=== PATIENT | female | born 1950 | race Caucasian/White ===

== ENCOUNTER → 2017-07-26 | Outpatient (CLI) | payer OTHER ==
[2016-07-06 11:51] VITALS: BP 133/64
== END ==
LOC: LAB 09:43
PROVIDERS: ATTEND Internal Medicine Gastroenterology
DX: K64.0 First degree hemorrhoids (principal)
CPT/HCPCS: 82270

== ENCOUNTER → 2017-08-06 | Outpatient (CLI) | payer OTHER ==
[2016-07-06 11:51] VITALS: BP 133/64
--- NOTE | 2017-08-07 16:53 | MG ---
HISTORY: SCREENING Comparison: Multiple priors dating back to June 01, 2010 FINDINGS: Bilateral CC and MLO projections of the right and left breast were obtained. Scattered fibroglandula r tissue is seen to be present without significant interval change. No suspicious architectural dist ortion, mass or clustered microcalcifications can be observed to suggest malignancy. No skin thicken ing or nipple retraction is appreciated. No pathological lymphadenopathy can be identified. Benign- appearing calcifications are noted within the right and left breast. IMPRESSION: NO RADIOGRAPHIC EVIDENCE OF MALIGNANCY. ACR CATEGORY 2 - benign findings. FOLLOW-UP EXAM 1 YEAR. Diagnostic CAD was utilized and reviewed. * 0 (ZERO) - ASSESSMENT INCOMPLETE; ADDITIONAL IMAGING IS NEEDED. * 1/ (ONE) - NEGATIVE. * 2/II (TWO) - BENIGN FINDINGS. * 3/III (THREE) - PROBABLY BENIGN FINDING; SHORT INTERVAL FOLLOW-UP SUGGESTED. * 4/IV (FOUR) - SUSPICIOUS ABNORMALITY; BIOPSY SHOULD BE CONSIDERED. * 5/V - HIGHLY SUSPICIOUS OF MALIGNANCY; BIOPSY SHOULD BE PERFORMED. A NEGATIVE X-RAY REPORT SHOULD NOT DELAY BIOPSY IF A DOMINANT OR CLINICALLY SUSPICIOUS MASS IS PRESENT; 4 TO 8 PERCENT OF CANCERS ARE NOT IDENTIFIED BY X-RAY. A NEGA TIVE REPORT MAY REINFORCE THE CLINICAL IMPRESSION. ADENOSIS AND DENSE BREASTS MAY OBSCURE AN UNDERLY ING NEOPLASM. Reported By:
== END ==
LOC: RAD 14:26
PROVIDERS: ATTEND Specialist
DX: Z12.31 Encounter for screening mammogram for malignant neoplasm of breast (principal)
CPT/HCPCS: 77067

== ENCOUNTER 2017-10-31 07:11 | Day surgery (SDC) | payer OTHER ==
[2017-10-31] MEDS ORDERED: NS 1000 ML 1,000 ML ONE (07:23)
[2017-10-31] MEDS ORDERED: ANCEF 1 GM IV PREMIX* 1 GM/50 ML BAG IV ONE (07:24)
[2017-10-31 07:47] LABS: BASOPHILS % (AUTO) 0.7 % (0.2-1.0); EOSINOPHILS # (AUTO) 0.2 x10^3/uL (0.0-0.2); EOSINOPHILS % (AUTO) 2.3 % (0.9-2.9); HEMATOCRIT 41.4 % (36.0-47.0); LYMPHOCYTES # (AUTO) 2.5 X10^3/uL (1.3-2.9); LYMPHOCYTES % (AUTO) 37.2 % (21.0-51.0); MEAN CORPUSCULAR HEMOGLOBIN 29.8 pg (27.0-34.0); MEAN CORPUSCULAR HGB CONC 33.8 g/dL (33.0-35.0); MEAN CORPUSCULAR VOLUME 88.2 fL (80.0-100.0); MEAN PLATELET VOLUME 7.2 fL (7.4-11.0); MONOCYTES # (AUTO) 0.7 x10^3/uL (0.3-0.8); MONOCYTES % (AUTO) 9.7 % (0.0-13.0); NEUTROPHILS # (AUTO) 3.4 x10^3/uL (2.2-4.8); NEUTROPHILS % (AUTO) 50.1 % (42.0-75.0); PLATELET COUNT 319 X10^3/uL (150.0-450.0); RED BLOOD COUNT 4.69 X10^6/uL (3.5-5.4); RED CELL DISTRIBUTION WIDTH 13.8 % (11.6-16.5); WHITE BLOOD COUNT 6.7 X10^3/uL (3.6-10.0)
[2017-10-31 07:58] LABS: ALANINE AMINOTRANSFERASE 30 Units/L (12-78); ALKALINE PHOSPHATASE 56 Units/L (46-116); ASPARTATE AMINO TRANSFERASE 23 Units/L (15-37); BLOOD UREA NITROGEN 17 mg/dL (7-18); CALCIUM 9.4 mg/dL (8.5-10.1); CARBON DIOXIDE 27.9 mmol/L (21-32); CHLORIDE 105 mmol/L (98-107); COR NA(FOR HYPERGLY) 141 mmol/L (136-145); CREATININE 0.92 mg/dL (0.55-1.02); SODIUM 141 mmol/L (136-145); eGFR BLACK RACES > 60 (>60); eGFR NON BLACK RACES > 60 (>60)
[2017-10-31] MEDS ORDERED: FENTANYL INJ 250 mcg ONE (08:28)
[2017-10-31] MEDS ORDERED: MARCAINE 0.25% INJ ONE (08:58)
[2017-10-31] MEDS ORDERED: XYLOCAINE 1% and EPINEPHRINE 1:100,000 ONE (08:58)
[2017-10-31] MEDS ORDERED: DECADRON INJ ONE (09:21)
[2017-10-31] MEDS: DILAUDID INJ IVP PRN ×3 (10:07→10:19)
[2017-10-31] MEDS ORDERED: ZOFRAN INJ 4 MG VIAL IVP PRN (10:09)
[2017-10-31] MEDS ORDERED: REGLAN INJ 10 MG VIAL IVP PRN (10:09)
[2017-10-31] MEDS ORDERED: PHENERGAN INJ 25 MG IVP PRN (10:09)
[2017-10-31] MEDS ORDERED: BENADRYL INJ 50 MG VIAL IVP PRN (10:09)
[2017-10-31] MEDS ORDERED: DILAUDID INJ ONE (10:10)
[2017-10-31] MEDS ORDERED: PERCOCET TAB 5/325 MG PO PRN (10:30)
--- NOTE | 2017-10-31 10:35 | OR.GENERIC ---
Post-Op Note Generic - Post-Op Note Operative Report: Operative Report Date of Operation: October 31, 2017 Pre-Operative Diagnosis: Biliary dyskinesia. Post-Operative Diagnosis: Biliary dyskinesia. Procedure: Laparoscopic cholecystectomy. Surgeon: Sumanth Hughes MD. Industrial Truck Operator: Timothy Oneal CRNA. Specimen: Gallbladder. Estimated blood loss: Minimal. Complications: None. Summary: The patient is a 66 year old female who presented with biliary dyskinesia. The patient was offered cholecystectomy. The risk and benefits of the procedure including difficulty with anesthesia, bleeding, infection, conversion to open procedure, bile leak, hernia formation, DVT, as well as PE were discussed with the patient. The patient understood these risks and requested the procedure. On October 31, 2017, the patient was brought to the operative theatre. A time out was performed verifying the patient and procedure. The patient received Ancef for pre-operative antibiosis. After satisfactory induction of general endotracheal anesthesia, the abdomen was prepped with Chloraprep and draped in the usual sterile fashion. The skin and subcutaneous tissue inferior to the umbilicus was anesthetized using local anesthetic. The skin was incised sharply. A 12 mm trocar was placed though the incision and into the peritoneal cavity using the Annette technique. Carbon dioxide was infiltrated through this trocar to obtain a pneumoperitoneum of 15 mm Hg. A camera was placed through this trocar and swept in all directions. No injury was seen from entering the peritoneal cavity. A site was selected in the subxiphoid location for our 2nd trocar. The skin and fascia was anesthetized using local anesthetic. The skin was incised sharply. A 5 mm trocar was placed into the peritoneal cavity under direct visualization. In a similar manner, two additional 5 mm trocars were placed. The first was placed in the mid-clavicular line approximately 2 fingerbreadths inferior to the left costal margin and a second in the anterior axillary line approximately 2 fingerbreadths inferior to the left costal margin. The patient was placed in reverse Trendelenburg and rotated to the patients left. The gallbladder was grasped at the fundus and elevated cephalad and slightly lateral. The peritoneum on the medial and lateral aspects of the infundibulum of the gallbladder was scored using hook electrocautery. Using blunt dissection, the cystic artery and duct were isolated. The critical view of safety was obtained. Both of these structures were divided between endoclips. The gallbladder was dissected free using hook electrocautery. The gallbladder was placed in an endobag and removed through the umbilical trocar site without difficulty. The trocar and camera were placed back inside the abdomen. Our clips were noted in good position. At this point, the 5 mm trocars were removed under direct visualization. No bleeding was seen. The umbilical trocar was then removed and pneumoperitoneum released. The fascia at the umbilicus was closed using a 0-Vicryl placed in a [id number] configuration x 2. The skin edges at all incisions were re- approximated using inverted, interrupted 4-0 Monocryl sutures. Mastisol and Steri-strips were placed. Sterile dressings were placed. The patient was awakened and taken to the recovery room in stable condition. There were no complications. All counts were correct.
[2017-10-31 12:01] VITALS: BP 153/74
[2017-10-31] MEDS ORDERED: LTA KIT LIDOCAINE 4% ONE (16:00)
[2017-10-31] MEDS ORDERED: DIPRIVAN VIAL ONE (16:00)
[2017-10-31] MEDS ORDERED: NORCURON INJ 10 MG VIAL ONE (16:00)
[2017-10-31] MEDS ORDERED: XYLOCAINE 2 % (PLAIN) ONE (16:00)
[2017-10-31] MEDS ORDERED: QUELICIN (OR ANECTINE) ONE (16:00)
[2017-10-31] MEDS ORDERED: SUPRANE IN ONE (16:00)
[2017-10-31] MEDS ORDERED: ZOFRAN INJ 4 MG VIAL ONE (16:00)
[2017-10-31] MEDS ORDERED: ROBINUL ONE (16:00)
[2017-10-31] MEDS ORDERED: VERSED ONE (16:00)
[2017-10-31] MEDS ORDERED: NEOSTIGMINE INJ ONE (16:00)
== END 2017-10-31 11:50 | disposition home or self-care (01) ==
LOC: SURG1 07:11
PROVIDERS: ATTEND Student in an Organized Health Care Education/Training Program
PROC: 0FT44ZZ Resection of Gallbladder, Percutaneous Endoscopic Approach (ICD-10-PCS; principal; 2017-10-31 08:30)
DX: K82.8 Other specified diseases of gallbladder (principal); Z01.810 Encounter for preprocedural cardiovascular examination
CPT/HCPCS: 36415; 80053; 85025; 93005; 93010; A4216; A4222; S0020; J0330; J0690; J1100; J1170; J2001; J2250; J2405; J2710; J3010; J3490

== ENCOUNTER → 2018-02-20 | Outpatient (CLI) | payer OTHER ==
--- NOTE | 2018-02-20 14:47 | RAD ---
Examination: X-rays of the left foot. Clinical history: Left lateral foot pain, no known injury. Technique: Three views of the left foot were obtained. Comparison: None available. Findings: No acute fracture, dislocation, or destructive bony lesion is noted. No arthropathy is noted. Bony spurring is noted at the plantar and posterior aspects of the calcaneus, consistent with entheso kamla. No soft tissue abnormality is noted. Impression: 1. No acute fracture or dislocation. Reported By:
== END | disposition home or self-care (01) ==
LOC: RAD 12:04
PROVIDERS: ATTEND Internal Medicine
DX: M79.672 Pain in left foot (principal)
CPT/HCPCS: 73630